=== PATIENT | male | born 2000 | race Caucasian/White ===

== ENCOUNTER 2024-07-22 02:48 | Emergency (ER) | payer OTHER ==
[~2024-07-22] VITALS: Ht 177.8 cm; Wt 68.0 kg
[~2024-07-22 02:48] MED LIST: ALBU90OI INH; AMOX50SU PO; GUAI100SY PO; PROCODE120 PO; PSEU9.4L PO; SPACE CHAMBER1 EACH MC; Zithromax200 MG/5 M PO
[2024-07-22 03:03] VITALS: BP 141/70
== END 2024-07-22 04:24 | disposition left against medical advice (07) ==
LOC: ER 02:48
DX: R51.9 Headache, unspecified (principal); Z53.21 Procedure and treatment not carried out due to patient leaving prior to being seen by health care provider